=== PATIENT | female | born 1965 | race African-American/Black ===

== ENCOUNTER 2024-04-03 10:25 | Day surgery (SDC) | payer OTHER ==
[2024-04-02 11:46] VITALS: BMI 53.0
[2024-04-03] MEDS ORDERED: Lidocaine 2% PF 5 ML VIAL ONE (12:24)
[2024-04-03] MEDS ORDERED: PROPOFOL 80 ML ONE (12:24)
[2024-04-03] MEDS ORDERED: PHENYLEPHRINE-NS 100 MCG/ML 10 ML SYRINGE ONE (12:26)
[2024-04-03] MEDS ORDERED: GLYCOPYRROLATE/PF 0.2 MG/ML VIAL ONE (12:26)
== END 2024-04-03 13:55 | disposition home or self-care (01) ==
LOC: SDC 10:25
PROVIDERS: ATTEND Internal Medicine Gastroenterology
PROC: 0DJD8ZZ Inspection of Lower Intestinal Tract, Via Natural or Artificial Opening Endoscopic (ICD-10-PCS; principal; 2024-04-03)
DX: Z12.11 Encounter for screening for malignant neoplasm of colon (principal); K57.30 Diverticulosis of large intestine without perforation or abscess without bleeding; E66.9 Obesity, unspecified; I10 Essential (primary) hypertension; E78.5 Hyperlipidemia, unspecified; K21.9 Gastro-esophageal reflux disease without esophagitis; J30.2 Other seasonal allergic rhinitis; K29.60 Other gastritis without bleeding; J30.9 Allergic rhinitis, unspecified; Z68.43 Body mass index [BMI] 50.0-59.9, adult; Z79.899 Other long term (current) drug therapy
CPT/HCPCS: J2001; J2704; J3490